=== PATIENT | male | born 1980 | race African-American/Black ===

== ENCOUNTER 2016-04-09 23:04 | Inpatient (IN) | payer OTHER ==
[~2016-04-09] VITALS: Ht 190.5 cm; Wt 188.5 kg
[2016-04-09 23:20] LABS: CREATININE 1.7 mg/dL (0.6-1.3); POTASSIUM 3.4 mEq/L (3.7-5.4)
[2016-04-09 23:52] LABS: CHLORIDE 97 mEq/L (99-109); POTASSIUM 3.4 mEq/L (3.7-5.4); SODIUM 130 mEq/L (136-147)
[2016-04-09 23:56] LABS: ANION GAP 29 MEQ/L (2-14); TOTAL BILIRUBIN 0.4 mg/dL (0.0-1.0)
[2016-04-09 23:58] LABS: ALKALINE PHOSPHATASE 132 IU/L (3-129); GFR ESTIMATE (CALCULATED) 38 mL/min/; GLUCOSE 683 mg/dL (70-99)
[2016-04-09 23:59] LABS: UREA NITROGEN (BUN) 23 mg/dL (9-23)
[2016-04-10] VITALS (21 sets, daily range): BP systolic 124–191; BP diastolic 71–105
[2016-04-10] LABS: DIRECT BILIRUBIN 0.3 mg/dL (0.0-0.3)
[2016-04-10 00:02] LABS: LIPASE 171 U/L (1.0-51.0)
[2016-04-10 00:11] LABS: CARBOXY HGB 1.5 % (0-5); COMMENTS - BLOOD GASES A+C+; DEVICE NC; METHEMOGLOBIN 1.1 % (0-1.5); O2 FLOW 2 L/MIN; PCO2 19 mm Hg (35-45); PO2 132 mm Hg (80-100); SITE RR; TOTAL RESP RATE 26 resp/min; pH 7.08 (7.35-7.45)
[2016-04-10 00:43] LABS: USER ID SLU
[2016-04-10 00:44] LABS: BASOPHIL COUNT 0.1 K/uL (0-0.1); EOSINOPHIL (%) 0.2 % (0-5); IMMATURE GRANULOCYTE (%) 1.5 % (0.0-0.7); IMMATURE GRANULOCYTE COUNT 2.9 K/uL; LYMPHOCYTE COUNT 1.7 K/uL (1.0-2.8); MCH 26.9 PG (29.0-34.0); MCHC 36.7 G/DL (30.0-36.0); MCV 73.4 FL (86-99); MONOCYTE (%) 9.6 % (3-12); MONOCYTE COUNT 1.9 K/uL (0-0.8); NEUTROPHIL (%) 79.7 % (45-76); NEUTROPHIL COUNT 15.4 K/uL (1.8-6.4); PLATELET COUNT UNABLE TO REPORT K/uL (156-360); RBC DIS.WIDTH-CV 14.9 % (11.8-14.6); RBC DIS.WIDTH-SD 38.8 % (39-53); RED BLOOD COUNT 5.31 M/uL (4.00-5.50); WHITE BLOOD COUNT 19.3 K/uL (4.1-10.2)
[2016-04-10 03:57] LABS: SAMPLE HEMOLYSIS CHECK 0; SAMPLE ICTERIC CHECK 0; SAMPLE LIPEMIA CHECK 0
[2016-04-10] MEDS ORDERED: PROCARDIA XL30 MG PO (04:12)
[2016-04-10] MEDS ORDERED: PRILOSEC20 MG PO (04:13)
[2016-04-10] MEDS ORDERED: MOTRIN600 MG PO (04:14)
[2016-04-10] MEDS ORDERED: CHLOR-TRIMETON4 MG PO (04:14)
[2016-04-10] MEDS ORDERED: TUMS500 MG PO (04:15)
[2016-04-10] MEDS ORDERED: FISH OIL 1,0001 EAC7 PO (04:16)
[2016-04-10 05:06] LABS: METH RESISTANT S AUREUS PCR NEGATIVE (NEGATIVE)
[2016-04-10 05:11] LABS: PROBE CHECK PASS; SPECIMEN PROCESSING CONTROL PASS
[2016-04-10 05:31] LABS: POINT-OF-CARE METER ID UU14162636
[2016-04-10 05:50] LABS: ANION GAP 22 MEQ/L (2-14); CHLORIDE 103 MEQ/L (99-109); POTASSIUM 3.2 MEQ/L (3.7-5.4); SAMPLE HEMOLYSIS CHECK 0; SAMPLE ICTERIC CHECK 0; SAMPLE LIPEMIA CHECK 0; SODIUM 131 MEQ/L (136-147); UREA NITROGEN (BUN) 22 mg/dL (9-23)
[2016-04-10 05:51] LABS: GFR ESTIMATE (CALCULATED) 56 mL/min/; GLUCOSE 417 mg/dL (70-99)
[2016-04-10 06:19] LABS: INFLUENZA A VIRAL ANTIGEN NEGATIVE; INFLUENZA B VIRAL ANTIGEN NEGATIVE
[2016-04-10 06:27] LABS: POINT-OF-CARE METER ID UU14162636
[2016-04-10 06:40] LABS: Estimated Average Glucose 329 mg/dL (70-123); HEMOGLOBIN A1c (GLYCOHEMOGLOB) 13.1 % HGB (Below 5.7)
[2016-04-10 07:52] LABS: POINT-OF-CARE METER ID UU14162636
[2016-04-10 08:51] LABS: POINT-OF-CARE METER ID UU14162636
[2016-04-10 09:20] LABS: ANION GAP 22 MEQ/L (2-14); CHLORIDE 106 MEQ/L (99-109); GFR ESTIMATE (CALCULATED) > 59 mL/min/; GLUCOSE 313 mg/dL (70-99); POTASSIUM 3.1 MEQ/L (3.7-5.4); SAMPLE HEMOLYSIS CHECK 1; SAMPLE ICTERIC CHECK 0; SAMPLE LIPEMIA CHECK 0; SODIUM 133 MEQ/L (136-147); UREA NITROGEN (BUN) 21 mg/dL (9-23)
[2016-04-10 09:49] LABS: POINT-OF-CARE METER ID UU14162636
[2016-04-10 10:41] LABS: POINT-OF-CARE METER ID UU14174217
[2016-04-10 11:28] LABS: CARBOXY HGB 1.8 % (0-5); METHEMOGLOBIN 1.7 % (0-1.5); PCO2 < 18 mm Hg (35-45); PO2 110 mm Hg (80-100); pH 7.21 (7.35-7.45)
[2016-04-10 11:29] LABS: COMMENTS - BLOOD GASES A+C+; DEVICE RA; FI02 0.21 %; SITE RR; TOTAL RESP RATE 24 resp/min
[2016-04-10 11:33] LABS: POINT-OF-CARE METER ID UU14162636
[2016-04-10 12:33] LABS: ANION GAP 22 MEQ/L (2-14); CHLORIDE 108 MEQ/L (99-109); GFR ESTIMATE (CALCULATED) > 59 mL/min/; GLUCOSE 258 mg/dL (70-99); POTASSIUM 2.6 MEQ/L (3.7-5.4); SAMPLE HEMOLYSIS CHECK 0; SAMPLE ICTERIC CHECK 0; SAMPLE LIPEMIA CHECK 0; SODIUM 137 MEQ/L (136-147); UREA NITROGEN (BUN) 20 mg/dL (9-23)
[2016-04-10 12:57] LABS: POINT-OF-CARE METER ID UU14162636
[2016-04-10 13:04] LABS: TROP-I INTERPRETATION NEGATIVE; TROPONIN-I 0.03 ng/mL (0.0-0.30)
[2016-04-10 13:54] LABS: POINT-OF-CARE METER ID UU14162636
[2016-04-10 14:48] LABS: POINT-OF-CARE METER ID UU14162636
[2016-04-10 15:45] LABS: POINT-OF-CARE METER ID UU14162636
[2016-04-10 16:59] LABS: POINT-OF-CARE METER ID UU14162636
[2016-04-10 17:39] LABS: POINT-OF-CARE METER ID UU14162636
[2016-04-10 18:54] LABS: POINT-OF-CARE METER ID UU14162636
[2016-04-10 19:25] LABS: ANION GAP 21 MEQ/L (2-14); CHLORIDE 111 MEQ/L (99-109); GFR ESTIMATE (CALCULATED) > 59 mL/min/; GLUCOSE 244 mg/dL (70-99); SAMPLE HEMOLYSIS CHECK 0; SAMPLE ICTERIC CHECK 0; SAMPLE LIPEMIA CHECK 0; SODIUM 140 MEQ/L (136-147); UREA NITROGEN (BUN) 18 mg/dL (9-23)
[2016-04-10 19:26] LABS: POTASSIUM 2.3 MEQ/L (3.7-5.4)
[2016-04-10 19:59] LABS: POINT-OF-CARE METER ID UU14162636
[2016-04-10 20:57] LABS: POINT-OF-CARE METER ID UU14162636
[2016-04-10 21:53] LABS: POINT-OF-CARE METER ID UU14162636
[2016-04-10 22:50] LABS: POINT-OF-CARE METER ID UU14162636
[2016-04-10 23:51] LABS: POINT-OF-CARE METER ID UU14162636
[2016-04-11] VITALS (24 sets, daily range): BP systolic 118–171; BP diastolic 71–88
[2016-04-11 00:44] LABS: POINT-OF-CARE METER ID UU14162636
[2016-04-11 00:55] LABS: POTASSIUM 2.5 mEq/L (3.7-5.4); SODIUM 140 mEq/L (136-147)
[2016-04-11 00:56] LABS: GLUCOSE 227 mg/dL (70-99)
[2016-04-11 00:57] LABS: CHLORIDE 114 mEq/L (99-109)
[2016-04-11 00:58] LABS: ANION GAP 15 MEQ/L (2-14)
[2016-04-11 01:00] LABS: GFR ESTIMATE (CALCULATED) 56 mL/min/
[2016-04-11 01:01] LABS: UREA NITROGEN (BUN) 15 mg/dL (9-23)
[2016-04-11 01:46] LABS: POINT-OF-CARE METER ID UU14174217
[2016-04-11 02:47] LABS: POINT-OF-CARE METER ID UU14174217
[2016-04-11 03:43] LABS: POINT-OF-CARE METER ID UU14174217
[2016-04-11 04:50] LABS: POINT-OF-CARE METER ID UU14174217
[2016-04-11 06:11] LABS: POINT-OF-CARE METER ID UU14162636
[2016-04-11 06:33] LABS: ANION GAP 12 MEQ/L (2-14); CHLORIDE 111 MEQ/L (99-109); GFR ESTIMATE (CALCULATED) > 59 mL/min/; GLUCOSE 136 mg/dL (70-99); LIPASE 187 U/L (1.0-51.0); SAMPLE HEMOLYSIS CHECK 0; SAMPLE ICTERIC CHECK 0; SAMPLE LIPEMIA CHECK 0; SODIUM 139 MEQ/L (136-147); UREA NITROGEN (BUN) 12 mg/dL (9-23)
[2016-04-11 06:39] LABS: POTASSIUM 2.3 MEQ/L (3.7-5.4)
[2016-04-11 07:10] LABS: POINT-OF-CARE METER ID UU14162636
[2016-04-11 08:53] LABS: POINT-OF-CARE METER ID UU14174217
[2016-04-11 10:32] LABS: POINT-OF-CARE METER ID UU14174217
[2016-04-11 11:52] LABS: CHLORIDE 111 mEq/L (99-109); POTASSIUM 2.7 mEq/L (3.7-5.4); SODIUM 136 mEq/L (136-147)
[2016-04-11 11:56] LABS: ANION GAP 15 MEQ/L (2-14); GLUCOSE 306 mg/dL (70-99)
[2016-04-11 11:58] LABS: GFR ESTIMATE (CALCULATED) > 59 mL/min/
[2016-04-11 11:59] LABS: UREA NITROGEN (BUN) 10 mg/dL (9-23)
[2016-04-11 12:14] LABS: ANION GAP 17 MEQ/L (2-14); CHLORIDE 108 MEQ/L (99-109); GFR ESTIMATE (CALCULATED) > 59 mL/min/; GLUCOSE 304 mg/dL (70-99); POTASSIUM 2.7 MEQ/L (3.7-5.4); SAMPLE HEMOLYSIS CHECK 0; SAMPLE ICTERIC CHECK 0; SAMPLE LIPEMIA CHECK 0; SODIUM 135 MEQ/L (136-147); UREA NITROGEN (BUN) 10 mg/dL (9-23)
[2016-04-11 13:22] LABS: MAGNESIUM 1.4 mg/dL (1.3-2.7)
[2016-04-11 13:33] LABS: POINT-OF-CARE METER ID UU14174217
[2016-04-11 15:00] LABS: POINT-OF-CARE METER ID UU14174217
[2016-04-11 16:11] LABS: POINT-OF-CARE METER ID UU14174217; POINT-OF-CARE USER ID 606021424
[2016-04-11 17:09] LABS: POINT-OF-CARE METER ID UU14174217
[2016-04-11 18:29] LABS: POINT-OF-CARE METER ID UU13113731
[2016-04-11 18:32] LABS: ANION GAP 15 MEQ/L (2-14); CHLORIDE 111 MEQ/L (99-109); GFR ESTIMATE (CALCULATED) > 59 mL/min/; GLUCOSE 325 mg/dL (70-99); POTASSIUM 2.8 MEQ/L (3.7-5.4); SAMPLE HEMOLYSIS CHECK 0; SAMPLE ICTERIC CHECK 0; SAMPLE LIPEMIA CHECK 0; SODIUM 138 MEQ/L (136-147); UREA NITROGEN (BUN) 10 mg/dL (9-23)
[2016-04-11 19:11] LABS: POINT-OF-CARE METER ID UU14162636
[2016-04-11 22:44] LABS: ANION GAP 14 MEQ/L (2-14); CHLORIDE 110 MEQ/L (99-109); GFR ESTIMATE (CALCULATED) > 59 mL/min/; GLUCOSE 270 mg/dL (70-99); POTASSIUM 2.9 MEQ/L (3.7-5.4); SAMPLE HEMOLYSIS CHECK 0; SAMPLE ICTERIC CHECK 0; SAMPLE LIPEMIA CHECK 0; SODIUM 138 MEQ/L (136-147); UREA NITROGEN (BUN) 8 mg/dL (9-23)
[2016-04-12] VITALS (15 sets, daily range): BP systolic 115–155; BP diastolic 70–82
[2016-04-12 00:22] LABS: POINT-OF-CARE METER ID UU13113731
[2016-04-12 02:07] LABS: POINT-OF-CARE METER ID UU13113731
[2016-04-12 02:20] LABS: CHLORIDE 114 mEq/L (99-109)
[2016-04-12 02:21] LABS: POTASSIUM 3.3 mEq/L (3.7-5.4); SODIUM 139 mEq/L (136-147)
[2016-04-12 02:22] LABS: GLUCOSE 288 mg/dL (70-99)
[2016-04-12 02:24] LABS: ANION GAP 13 MEQ/L (2-14)
[2016-04-12 02:26] LABS: GFR ESTIMATE (CALCULATED) > 59 mL/min/
[2016-04-12 02:27] LABS: UREA NITROGEN (BUN) 7 mg/dL (9-23)
[2016-04-12 04:36] LABS: POINT-OF-CARE METER ID UU13113731
[2016-04-12 06:14] LABS: POINT-OF-CARE METER ID UU13113731
[2016-04-12 07:11] LABS: ANION GAP 11 MEQ/L (2-14); CHLORIDE 112 MEQ/L (99-109); GFR ESTIMATE (CALCULATED) > 59 mL/min/; GLUCOSE 246 mg/dL (70-99); MAGNESIUM 1.6 mg/dl (1.3-2.7); POTASSIUM 2.9 MEQ/L (3.7-5.4); SAMPLE HEMOLYSIS CHECK 0; SAMPLE ICTERIC CHECK 0; SAMPLE LIPEMIA CHECK 0; SODIUM 139 MEQ/L (136-147); UREA NITROGEN (BUN) 7 mg/dL (9-23)
[2016-04-12 07:24] LABS: HEMATOCRIT 27.6 % (38.0-50.0); MCH 27.4 PG (29.0-34.0); MCHC 36.6 G/DL (30.0-36.0); RBC DIS.WIDTH-CV 15.5 % (11.8-14.6); RBC DIS.WIDTH-SD 41.7 % (39-53)
[2016-04-12 07:38] LABS: RED BLOOD COUNT 3.68 M/uL (4.00-5.50)
[2016-04-12 08:24] LABS: POINT-OF-CARE METER ID UU13113731
[2016-04-12 10:26] LABS: POINT-OF-CARE METER ID UU13113731
[2016-04-12 11:49] LABS: POINT-OF-CARE METER ID UU14100415
[2016-04-12 11:49] LABS: POINT-OF-CARE METER ID UU14100415
[2016-04-12 11:49] LABS: POINT-OF-CARE METER ID UU14100415
[2016-04-12 11:49] LABS: POINT-OF-CARE METER ID UU14162636
[2016-04-12 12:28] LABS: POINT-OF-CARE METER ID UU13113731
[2016-04-12 14:14] LABS: ANION GAP 11 MEQ/L (2-14); CHLORIDE 108 MEQ/L (99-109); GFR ESTIMATE (CALCULATED) > 59 mL/min/; GLUCOSE 323 mg/dL (70-99); POTASSIUM 2.8 MEQ/L (3.7-5.4); SAMPLE HEMOLYSIS CHECK 0; SAMPLE ICTERIC CHECK 0; SAMPLE LIPEMIA CHECK 0; SODIUM 135 MEQ/L (136-147); UREA NITROGEN (BUN) 8 mg/dL (9-23)
[2016-04-12 14:25] LABS: POINT-OF-CARE METER ID UU13113731
[2016-04-12 16:17] LABS: POINT-OF-CARE METER ID UU13113731
[2016-04-12 18:11] LABS: POINT-OF-CARE METER ID UU13113731
[2016-04-12 20:18] LABS: ANION GAP 11 MEQ/L (2-14); CHLORIDE 108 MEQ/L (99-109); GFR ESTIMATE (CALCULATED) > 59 mL/min/; GLUCOSE 324 mg/dL (70-99); POTASSIUM 3.1 MEQ/L (3.7-5.4); SAMPLE HEMOLYSIS CHECK 0; SAMPLE ICTERIC CHECK 0; SAMPLE LIPEMIA CHECK 0; SODIUM 136 MEQ/L (136-147); UREA NITROGEN (BUN) 8 mg/dL (9-23)
[2016-04-12 20:23] LABS: POINT-OF-CARE METER ID UU13113731
[2016-04-12 22:30] LABS: POINT-OF-CARE METER ID UU13113731
[2016-04-13] VITALS (8 sets, daily range): BP systolic 112–153; BP diastolic 65–91
[2016-04-13 00:31] LABS: POINT-OF-CARE METER ID UU13113731
[2016-04-13 02:19] LABS: POINT-OF-CARE METER ID UU14162636
[2016-04-13 03:34] LABS: CHLORIDE 113 mEq/L (99-109); POTASSIUM 2.8 mEq/L (3.7-5.4); SODIUM 141 mEq/L (136-147)
[2016-04-13 03:35] LABS: GLUCOSE 250 mg/dL (70-99)
[2016-04-13 03:37] LABS: ANION GAP 9 MEQ/L (2-14)
[2016-04-13 03:39] LABS: GFR ESTIMATE (CALCULATED) > 59 mL/min/
[2016-04-13 03:40] LABS: UREA NITROGEN (BUN) 8 mg/dL (9-23)
[2016-04-13 04:42] LABS: POINT-OF-CARE METER ID UU14162636
[2016-04-13 06:34] LABS: POINT-OF-CARE METER ID UU14162636
[2016-04-13 07:29] LABS: POINT-OF-CARE METER ID UU14162636
[2016-04-13 07:35] LABS: NRBC (%) 0.9 /100 WBC (0-0)
[2016-04-13 08:01] LABS: EOSINOPHIL (%) 2.9 % (0-5); EOSINOPHIL COUNT 0.2 K/uL (0-0.3); IMMATURE GRANULOCYTE (%) 4.9 % (0.0-0.7); IMMATURE GRANULOCYTE COUNT 0.4 K/uL; LYMPHOCYTE COUNT 2.2 K/uL (1.0-2.8); MONOCYTE COUNT 1.7 K/uL (0-0.8); NEUTROPHIL (%) 45.9 % (45-76); NEUTROPHIL COUNT 3.8 K/uL (1.8-6.4)
[2016-04-13 08:06] LABS: ALKALINE PHOSPHATASE 70 IU/L (3-129); ANION GAP 9 MEQ/L (2-14); CHLORIDE 111 MEQ/L (99-109); GFR ESTIMATE (CALCULATED) > 59 mL/min/; GLUCOSE 196 mg/dL (70-99); MAGNESIUM 1.8 mg/dl (1.3-2.7); POTASSIUM 2.9 MEQ/L (3.7-5.4); SAMPLE HEMOLYSIS CHECK 0; SAMPLE ICTERIC CHECK 0; SAMPLE LIPEMIA CHECK 0; SODIUM 141 MEQ/L (136-147); TOTAL BILIRUBIN 0.4 MG/DL (0.0-1.0); UREA NITROGEN (BUN) 7 mg/dL (9-23)
[2016-04-13 08:11] LABS: HEMATOCRIT 29.4 % (38.0-50.0); MCH 27.2 PG (29.0-34.0); MCHC 36.1 G/DL (30.0-36.0); MCV 75.4 FL (86-99); RBC DIS.WIDTH-CV 15.9 % (11.8-14.6); RBC DIS.WIDTH-SD 43.5 % (39-53); WHITE BLOOD COUNT 8.3 K/uL (4.1-10.2)
[2016-04-13 09:16] LABS: HEMATOLOGY COMMENT 1 SMEAR COMPATIBLE; PLAT.SUFFICIENCY DECREASED; PLATELET COUNT UNABLE TO REPORT K/uL (156-360); USER ID TLW
[2016-04-13 11:29] LABS: POINT-OF-CARE METER ID UU14162636
[2016-04-13 12:00] LABS: ADD MIUA? YES; BILIRUBIN NEGATIVE; BLOOD SMALL; COLOR STRAW ((YELLOW)); GLUCOSE (STRIP) >=500; KETONES NEGATIVE; LEUKOCYTES NEGATIVE; NITRITE NEGATIVE; PROTEIN (STRIP) NEGATIVE; SPECIFIC GRAVITY 1.002 (1.000-1.030); UROBILINOGEN 0.2 MG/DL (0.2-1.0)
[2016-04-13 12:21] LABS: BACTERIA RARE /HPF; EPITHELIAL CELLS NONE SEEN /HPF; MUCUS TRACE /LPF; RED BLOOD CELLS 0-5 /HPF (0-5); WHITE BLOOD CELLS 0-5 /HPF (0-5)
[2016-04-13 13:30] LABS: UR CREATININE CONCENTRATION 47.8 MG/DL; UR CREATININE CONCENTRATION 47.9 MG/DL
[2016-04-13 14:45] LABS: ANION GAP 9 MEQ/L (2-14); CHLORIDE 107 MEQ/L (99-109); GFR ESTIMATE (CALCULATED) > 59 mL/min/; SAMPLE HEMOLYSIS CHECK 0; SAMPLE ICTERIC CHECK 0; SAMPLE LIPEMIA CHECK 0; SODIUM 136 MEQ/L (136-147); UREA NITROGEN (BUN) 9 mg/dL (9-23); URIC ACID 2.3 mg/dL (3.1-9.2)
[2016-04-13 14:49] LABS: GLUCOSE 467 mg/dL (70-99); POTASSIUM 3.6 MEQ/L (3.7-5.4)
[2016-04-13 15:50] LABS: POINT-OF-CARE METER ID UU14162636
[2016-04-13 15:50] LABS: POINT-OF-CARE METER ID UU14162636
[2016-04-13 18:10] LABS: POINT-OF-CARE METER ID UU14162636
[2016-04-13 20:20] LABS: POINT-OF-CARE METER ID UU14162636
[2016-04-13 20:49] LABS: ANION GAP 9 MEQ/L (2-14); CHLORIDE 110 MEQ/L (99-109); GFR ESTIMATE (CALCULATED) > 59 mL/min/; GLUCOSE 368 mg/dL (70-99); POTASSIUM 3.5 MEQ/L (3.7-5.4); SAMPLE HEMOLYSIS CHECK 0; SAMPLE ICTERIC CHECK 0; SAMPLE LIPEMIA CHECK 0; SODIUM 139 MEQ/L (136-147); UREA NITROGEN (BUN) 12 mg/dL (9-23)
[2016-04-14] VITALS: BP 126/76
[2016-04-14 03:18] LABS: POINT-OF-CARE METER ID UU14174217
[2016-04-14 04:00] VITALS: BP 122/79
[2016-04-14 06:16] LABS: HEMATOCRIT 29.8 % (38.0-50.0); MCHC 34.2 G/DL (30.0-36.0); NRBC (%) 0.5 /100 WBC (0-0); RBC DIS.WIDTH-CV 16.3 % (11.8-14.6); RBC DIS.WIDTH-SD 44.7 % (39-53); RED BLOOD COUNT 3.92 M/uL (4.00-5.50); WHITE BLOOD COUNT 7.5 K/uL (4.1-10.2)
[2016-04-14 06:56] LABS: ANION GAP 9 MEQ/L (2-14); CHLORIDE 110 MEQ/L (99-109); GFR ESTIMATE (CALCULATED) > 59 mL/min/; GLUCOSE 243 mg/dL (70-99); MAGNESIUM 1.7 mg/dl (1.3-2.7); POTASSIUM 3.4 MEQ/L (3.7-5.4); SAMPLE HEMOLYSIS CHECK 0; SAMPLE ICTERIC CHECK 0; SAMPLE LIPEMIA CHECK 0; SODIUM 141 MEQ/L (136-147); UREA NITROGEN (BUN) 11 mg/dL (9-23)
[2016-04-14 07:24] LABS: EOSINOPHIL (%) 3.7 % (0-5); EOSINOPHIL COUNT 0.3 K/uL (0-0.3); HEMATOLOGY COMMENT 1 SMEAR COMPATIBLE; IMMATURE GRANULOCYTE (%) 1.6 % (0.0-0.7); IMMATURE GRANULOCYTE COUNT 0.1 K/uL; LYMPHOCYTE COUNT 2.2 K/uL (1.0-2.8); MEAN PLAT.VOLUME 11.5 uM^3 (9.0-12.4); MONOCYTE COUNT 1.4 K/uL (0-0.8); NEUTROPHIL (%) 46.1 % (45-76); NEUTROPHIL COUNT 3.4 K/uL (1.8-6.4); PLAT.SUFFICIENCY ADEQUATE; USER ID CL
[2016-04-14 07:29] LABS: PLATELET COUNT 143 K/uL (156-360)
[2016-04-14 08:00] VITALS: BP 129/68
[2016-04-14 12:00] VITALS: BP 131/65
[2016-04-14 12:27] LABS: POINT-OF-CARE METER ID UU14174217
[2016-04-14] MEDS ORDERED: LISINOPRIL5 MG PO (12:46)
[2016-04-14] MEDS ORDERED: K-DUR20 MEQ PO (12:46)
[2016-04-14] MEDS ORDERED: LEVEMIR100 UNIT/2 SC (12:46)
[2016-04-14] MEDS ORDERED: NOVOLOG PE100 UNITS/ SC (12:46)
[2016-04-14] MEDS ORDERED: GABAPENTIN100 MG PO (12:46)
[2016-04-14] MEDS ORDERED: ADVAIR 250/501 DISK IH (12:50)
[2016-04-14] MEDS ORDERED: VENTOLIN HFA18 GM IH (12:51)
[2016-04-14 18:17] LABS: POINT-OF-CARE METER ID UU14174217
[2016-04-14 19:45] VITALS: BP 115/60
[2016-04-14 20:02] VITALS: BP 115/60
[2016-04-14 21:44] LABS: POINT-OF-CARE METER ID UU14149397
[2016-04-15 00:01] VITALS: BP 100/59
[2016-04-15 00:23] LABS: CHLORIDE 111 mEq/L (99-109); SODIUM 138 mEq/L (136-147)
[2016-04-15 00:25] LABS: GLUCOSE 340 mg/dL (70-99)
[2016-04-15 00:26] LABS: ANION GAP 6 MEQ/L (2-14)
[2016-04-15 00:29] LABS: GFR ESTIMATE (CALCULATED) > 59 mL/min/
[2016-04-15 00:30] LABS: POTASSIUM 4.1 mEq/L (3.7-5.4); UREA NITROGEN (BUN) 12 mg/dL (9-23)
[2016-04-15 02:57] LABS: POINT-OF-CARE METER ID UU14149397
[2016-04-15 03:48] VITALS: BP 99/54
[2016-04-15 06:11] LABS: HEMATOCRIT 31.3 % (38.0-50.0); MCH 27.3 PG (29.0-34.0); MCHC 34.8 G/DL (30.0-36.0); MCV 78.4 FL (86-99); PLATELET COUNT 148 K/uL (156-360); RBC DIS.WIDTH-CV 16.5 % (11.8-14.6); RED BLOOD COUNT 3.99 M/uL (4.00-5.50); WHITE BLOOD COUNT 6.9 K/uL (4.1-10.2)
[2016-04-15 06:38] LABS: EOSINOPHIL (%) 3.2 % (0-5); EOSINOPHIL COUNT 0.2 K/uL (0-0.3); IMMATURE GRANULOCYTE (%) 1.7 % (0.0-0.7); IMMATURE GRANULOCYTE COUNT 0.1 K/uL; LYMPHOCYTE COUNT 1.7 K/uL (1.0-2.8); MONOCYTE (%) 20.2 % (3-12); MONOCYTE COUNT 1.4 K/uL (0-0.8); NEUTROPHIL (%) 50.5 % (45-76); NEUTROPHIL COUNT 3.5 K/uL (1.8-6.4)
[2016-04-15 06:51] LABS: ANION GAP 8 MEQ/L (2-14); CHLORIDE 110 MEQ/L (99-109); GFR ESTIMATE (CALCULATED) > 59 mL/min/; GLUCOSE 255 mg/dL (70-99); POTASSIUM 4.1 MEQ/L (3.7-5.4); SAMPLE HEMOLYSIS CHECK 0; SAMPLE ICTERIC CHECK 0; SAMPLE LIPEMIA CHECK 0; SODIUM 141 MEQ/L (136-147); UREA NITROGEN (BUN) 10 mg/dL (9-23)
[2016-04-15 06:55] LABS: POINT-OF-CARE METER ID UU14149397
[2016-04-15] MEDS ORDERED: K-DUR20 MEQ PO (07:43)
[2016-04-15 08:14] VITALS: BP 125/65
[2016-04-15] MEDS ORDERED: NOVOLOG PE100 UNITS/ SC (09:31)
[2016-04-15 10:00] LABS: POINT-OF-CARE USER ID 606021404
== END 2016-04-15 12:19 | DRG 637 ==
LOC: EME 23:04 → EDBD 23:04 → 4WEST 04-10 02:09 → EDOF 04-10 02:09 → 4WEST 04-10 02:09 → 3EAST 04-14 19:28
PROVIDERS: Emergency Medicine; Hospitalist; Internal Medicine; Internal Medicine Critical Care Medicine; Internal Medicine Nephrology; Surgery
PROC: 05H533Z Insertion of Infusion Device into Right Subclavian Vein, Percutaneous Approach (ICD-10-PCS; principal; 2016-04-11)
DX: E10.10 Type 1 diabetes mellitus with ketoacidosis without coma (principal); K85.90 Acute pancreatitis without necrosis or infection, unspecified; J96.01 Acute respiratory failure with hypoxia; Z68.43 Body mass index [BMI] 50.0-59.9, adult; E66.01 Morbid (severe) obesity due to excess calories; I10 Essential (primary) hypertension; E87.6 Hypokalemia; E83.39 Other disorders of phosphorus metabolism; N19 Unspecified kidney failure; K21.9 Gastro-esophageal reflux disease without esophagitis
CPT/HCPCS: 36600; 71010; 74176; 76770; 80047; 80048; 80048 91; 80053; 80076; 81003; 82010; 82436; 82570; 82803; 82948; 83036; 83605; 83690; 83735; 83935; 84100; 84133; 84156; 84300; 84484; 84550; 84681 90; 85025; 85027; 87502; 87641; 99281; 99285; J0692; J1644; J1815; J2405; J3475; J3480; J7030; J7040; J7050; J7120